=== PATIENT | male | born 2000 | race Caucasian/White ===

== ENCOUNTER 2018-06-07 01:13 | Emergency (ER) | payer BC ==
[2018-06-07] MEDS ORDERED: IBUPROFEN 600 MG TAB PO ONE (01:20)
--- NOTE | 2018-06-07 01:38 | EDPHY ---
H & P Stated Complaint: right ankle injury Time Seen by Provider: 06/07/18 01:38 HPI/ROS: HPI CHIEF COMPLAINT: Right ankle pain, right foot pain. HISTORY OF PRESENT ILLNESS: 17-year-old male presents emergency room after he rolled his right ankle/foot right approximately an hour ago. He states inversion mechanism. No direct trauma. He now has swelling and pain to the right lateral malleolus and midfoot. Denies any other 0 trauma. He presents emergency room by private vehicle with his mom. Past Medical History: No significant medical history Past Surgical History: No significant surgical history Social History: Denies drugs alcohol tobacco. [employer] student. Family History: Noncontributory ROS REVIEW OF SYSTEMS: A comprehensive 10 point review of systems is otherwise negative aside from elements mentioned in the history of present illness. Exam Constitutional triage nursing summary reviewed, vital signs reviewed, awake/ alert. Eyes normal conjunctivae and sclera, EOMI, PERRLA. HENT normal inspection, atraumatic, moist mucus membranes, no epistaxis, neck supple/ no meningismus, no raccoon eyes. Respiratory clear to auscultation bilaterally, normal breath sounds, no respiratory distress, no wheezing. Cardiovascular rate normal, regular rhythm, no murmur, no edema, distal pulses normal. Gastrointestinal soft, non-tender, no rebound, no guarding, normal bowel sounds, no distension, no pulsatile mass. Genitourinary no CVA tenderness. Musculoskeletal right leg: Good distal pulse, good cap refill. Swelling noted over the medial and lateral malleolus. Sensation intact. No crepitus. No open injury. No signs of compartment syndrome. no midline vertebral tenderness, full range of motion, no calf swelling, no tenderness of extremities, no meningismus, good pulses, neurovascularly intact. Skin pink, warm, & dry, no rash, skin atraumatic. Neurologic awake, alert and oriented x 3, AAOx3, moves all 4 extremities equally, motor intact, sensory intact, CN II-XII intact, normal cerebellar, normal vision, normal speech. Psychiatric normal mood/affect. Heme/Lymph/Immune no lymphadenopathy. Differential Diagnosis: Includes but is not limited to right ankle sprain, right ankle contusion, ankle fracture, foot fracture. Medical Decision Making: Plan for this patient x-ray right foot, x-ray right ankle. Ice pack, anti-inflammatory pain medicine and re-evaluate. Re-evaluation: X-ray of the right foot, and x-ray the right ankle reviewed by myself. Shows an avulsion fracture over the dorsum or top of the foot. Otherwise I do not appreciate any dislocation or significant ankle or foot fracture. The patient be placed in a posterior short leg and stirrup. Recommend ice, splint, crutches, anti-inflammatory pain medicine and follow up with Orthopedics. Went over this with the patient and his mom at bedside. Final diagnosis ankle sprain. Avulsion fraction. Patient be placed in a posterior short-leg stirrup. Crutches. Follow up with Orthopedics. Anti-inflammatory pain medicine Return precautions discussed. He understands Source: Patient, EMS - Personal History Current Tetanus Diphtheria and Acellular Pertussis (TDAP): Yes - Medical/Surgical History Hx Asthma: No Hx Chronic Respiratory Disease: No Hx Diabetes: No Hx Cardiac Disease: No Hx Renal Disease: No Hx Cirrhosis: No Hx Alcoholism: No Hx HIV/AIDS: No Hx Splenectomy or Spleen Trauma: No Other PMH: denies - Social History Smoking Status: Never smoked Constitutional: Initial Vital Signs Temperature (C) 36.7 C 06/07/18 01:16 Heart Rate 99 06/07/18 01:16 Respiratory Rate 18 06/07/18 01:16 Blood Pressure 132/69 H 06/07/18 01:16 O2 Sat (%) 94 06/07/18 01:16 O2 Delivery Mode Room Air Allergies/Adverse Reactions: No Known Allergies Allergy (Unverified 06/07/18 01:15) Home Medications: Medication Instructions Recorded Bactrim DS 06/07/18 Hydrocodone/APAP 5/325 [[place] 1 - 2 tab PO Q4H PRN #10 tab 06/07/18 5/325] Ibuprofen [Motrin (*)] 800 mg PO Q6-8PRN #10 tab 06/07/18 Medical Decision Making - Data Points Medications Given: Discontinued Medications Ibuprofen (Motrin) 600 mg PO EDNOW ONE Stop: 06/07/18 01:21 Last Admin: 06/07/18 01:26 Dose: 600 mg Departure - Departure Disposition: Home, Routine, Self-Care Clinical Impression: Foot fracture Qualifiers: Encounter type: initial encounter Fracture type: closed Laterality: right Qualified Code(s): S92.901A - Unspecified fracture of right foot, initial encounter for closed fracture Condition: Good Instructions: Hydrocodone/Acetaminophen (By mouth), Ankle Sprain (ED), Foot Fracture in Adults (ED) Additional Instructions: 1. Splint for comfort. 2. Crutches for comfort. 3. Follow up with Orthopedics 4. Return emergency room if there is worsening symptoms questions or concerns. Referrals: NONE *PRIMARY CARE P,. [Primary Care Provider] - As per Instructions Arpit Mae MD [Medical Doctor] - As per Instructions Prescriptions: Hydrocodone/APAP 5/325 [[place] 5/325] 1 - 2 tab PO Q4H PRN #10 tab PRN Reason: Pain, Moderate Ibuprofen [Motrin (*)] 800 mg PO Q6-8PRN #10 tab
[2018-06-07 02:44] VITALS: BP 114/60
== END 2018-06-07 02:42 | disposition home or self-care (01) ==
DX: S92.151A Displaced avulsion fracture (chip fracture) of right talus, initial encounter for closed fracture (principal); S93.401A Sprain of unspecified ligament of right ankle, initial encounter; X50.9XXA Other and unspecified overexertion or strenuous movements or postures, initial encounter